=== PATIENT | male | born 1995 | race African-American/Black ===

== ENCOUNTER 2016-09-09 03:23 | Emergency (ER) | payer MEDICAID, OTHER ==
[~2016-09-09] VITALS: Ht 167.6 cm; Wt 75.0 kg
[2016-09-09 04:00] VITALS: BP 127/62
== END 2016-09-09 05:01 | disposition home or self-care (01) ==
LOC: ER 03:23
DX: G40.909 Epilepsy, unspecified, not intractable, without status epilepticus (principal)
CPT/HCPCS: 99283; Z7610

== ENCOUNTER 2017-04-19 08:04 | Emergency (ER) | payer MEDICAID, OTHER ==
[~2017-04-19] VITALS: Ht 177.8 cm; Wt 86.0 kg
[2017-04-19] MEDS ORDERED: KEPP500 PO (08:07)
[2017-04-19] MEDS ORDERED: LORAZEPAM 2MG/ML CPJ IV PRN (09:15)
[2017-04-19 09:41] LABS: BASOPHILS % 0.3 % (0.0-2.0); HEMATOCRIT. 44.2 % (42.0-52.0); HEMOGLOBIN. 14.6 g/dL (14.0-18.0); LYMPHOCYTES % 9.1 % (20.0-50.0); MEAN CORPUSCULAR HEMOGLOBIN 26.1 pg (28.0-32.0); MEAN CORPUSCULAR VOLUME 78.9 fL (80.0-94.0); MEAN PLATELET VOLUME 8.6 fl (7.4-10.4); MONOCYTES % 7.8 % (2.0-8.0); NEUTROPHILS % 80.8 % (40.0-76.0); PLATELET 209 x1000/uL (130-400); RED CELL DISTRIBUTION WIDTH 14.4 % (11.6-14.6)
[2017-04-19 09:56] LABS: CARBON DIOXIDE 28 mEq/L (21-32); CHLORIDE 106 mEq/L (98-107); ETHANOL BLOOD < 10 mg/dL
[2017-04-19] MEDS ORDERED: LEVETIRACETAM 500MG PREMIX 100 ML IV ONE (12:00)
[2017-04-19 13:54] VITALS: BP 122/60
== END 2017-04-19 14:04 | disposition home or self-care (01) ==
LOC: ER 08:25
DX: R56.9 Unspecified convulsions (principal)
CPT/HCPCS: 36415; 80053; 85025; 96365; 99284; G0482; J1953; Z7610; J2060

== ENCOUNTER 2017-07-15 02:38 | Emergency (ER) | payer OTHER ==
[~2017-07-15] VITALS: Ht 170.2 cm; Wt 95.0 kg
[~2017-07-15 02:38] MED LIST: KEPP500 PO
[2017-07-15] MEDS ORDERED: LEVETIRACETAM 100MG/ML ORAL SYR PO ONE (03:30)
[2017-07-15] MEDS ORDERED: LEVETIRACETAM 500MG/5ML CUP PO NR (04:00)
[2017-07-15 04:15] VITALS: BP 126/88
== END 2017-07-15 04:58 | disposition home or self-care (01) ==
LOC: ER 02:38
DX: R56.9 Unspecified convulsions (principal)
CPT/HCPCS: 36415; 82947; 82962; 99283

== ENCOUNTER 2017-09-02 15:57 | Emergency (ER) | payer OTHER ==
[~2017-09-02] VITALS: Ht 175.3 cm; Wt 104.5 kg
[2017-09-02] MEDS ORDERED: SODIUM CHLORIDE 0.9% 1,000 ML IV ONE (16:37)
[2017-09-02] MEDS ORDERED: LEVETIRACETAM 500MG PREMIX 100 ML IV ONE (16:45)
[2017-09-02 18:37] LABS: BASOPHILS % 0.1 % (0.0-2.0); EOSINOPHILS % 2.3 % (0.0-5.0); HEMATOCRIT. 41.9 % (42.0-52.0); HEMOGLOBIN. 14.2 g/dL (14.0-18.0); LYMPHOCYTES % 10.8 % (20.0-50.0); MEAN CORPUSCULAR HEMOGLOBIN 26.5 pg (28.0-32.0); MEAN CORPUSCULAR VOLUME 78.1 fL (80.0-94.0); MEAN PLATELET VOLUME 8.9 fl (7.4-10.4); MONOCYTES % 8.1 % (2.0-8.0); NEUTROPHILS % 78.7 % (40.0-76.0); PLATELET 235 x1000/uL (130-400); RED BLOOD CELL COUNT 5.37 mill/uL (4.7-6.1); RED CELL DISTRIBUTION WIDTH 14.8 % (11.6-14.6)
[2017-09-02 18:40] LABS: CHLORIDE 109 mEq/L (98-107)
[2017-09-02] MEDS ORDERED: POTASSIUM CHLORIDE 20MEQ TABLET SR PO ONE (19:00)
[2017-09-02 20:00] VITALS: BP 101/52
== END 2017-09-02 20:05 | disposition home or self-care (01) ==
LOC: ER 16:11
DX: G40.909 Epilepsy, unspecified, not intractable, without status epilepticus (principal); F84.0 Autistic disorder; R05 Cough
CPT/HCPCS: 36415; 80053; 85025; 96365; 99285; J1953; J7030; Z7610

== ENCOUNTER 2018-10-20 23:17 | Emergency (ER) | payer MEDICAID, OTHER ==
[~2018-10-20] VITALS: Ht 177.8 cm; Wt 100.0 kg
[2018-10-21] MEDS ORDERED: LEVETIRACETAM 500MG PREMIX 100 ML IV ONE (00:30)
[2018-10-21] MEDS ORDERED: LEVETIRACETAM 250MG TABLET PO ONE (00:30)
[2018-10-21] MEDS ORDERED: IBUPROFEN 600MG TABLET PO ONE (00:30)
[2018-10-21 01:04] VITALS: BP 127/72
== END 2018-10-21 01:11 | disposition home or self-care (01) ==
LOC: ER 23:17
DX: S00.83XA Contusion of other part of head, initial encounter (principal); R56.9 Unspecified convulsions; W18.39XA Other fall on same level, initial encounter; Y93.89 Activity, other specified; Y92.89 Other specified places as the place of occurrence of the external cause; Y99.8 Other external cause status
CPT/HCPCS: 82962; 96374; 99283; J1953; Z7610